=== PATIENT | female | born 1995 | race Caucasian/White ===

== ENCOUNTER 2019-05-10 10:27 | Observation (INO) ==
[2019-05-10] MEDS ORDERED: Ringers Solution, Lactated 1,000 ML IVC ONE (14:11)
[2019-05-10] MEDS ORDERED: Ringers Solution, Lactated 1,000 ML ONE (14:29)
[2019-05-10] MEDS: Acetaminophen 325 MG TABLET PO PRN ×2 (15:02→23:17)
[2019-05-10] MEDS: Meropenem 1,000 MG in 0.9 % Sodium Chloride Mini Bag 100 ML IVPB SCH ×2 (16:08→23:25)
[2019-05-10] MEDS: Ringers Solution, Lactated 1,000 ML IVC SCH ×2 (16:10→23:19)
[2019-05-10] MEDS: Ondansetron 4 MG/2 ML VIAL IVP PRN (23:40)
[2019-05-11 06:24] LABS: Basophils # 0.1 K/mcL (0.0-0.2); Basophils % 0.4 %; Eosinophils # 0.3 K/mcL (0.0-0.6); Eosinophils % 2.3 %; Hematocrit 31.4 % (35.3-44.9); Hemoglobin 10.1 g/dL (11.5-15.4); Immature Granulocytes % 0.7 % (0-4); Lymphocytes # 1.8 K/mcL (0.6-4.6); Lymphocytes % 13.3 %; Mean Corpuscular HGB Conc 32.2 g/dL (31.6-35.5); Mean Corpuscular Hemoglobin 28.5 pg (28.0-33.3); Mean Corpuscular Volume 88.5 fL (83.0-100.0); Mean Platelet Volume 11.3 fL (9.4-12.4); Monocytes # 0.8 K/mcL (0.0-1.3); Monocytes % 5.7 %; Neutrophils # 10.6 K/mcL (1.6-8.9); Platelet Count 275 K/mcL (140-400); Red Blood Count 3.55 M/mcL (3.82-4.97); Red Cell Distribution Width 12.8 % (11.5-14.5); Segmented Neutrophils % 77.6 %; White Blood Count 13.7 K/mcL (4.3-11.1)
[2019-05-11] MEDS: Acetaminophen 325 MG TABLET PO PRN (07:44)
[2019-05-11] MEDS: Meropenem 1,000 MG in 0.9 % Sodium Chloride Mini Bag 100 ML IVPB SCH (07:45)
[2019-05-11] MEDS: Ringers Solution, Lactated 1,000 ML IVC SCH (07:45)
[2019-05-11] MEDS: Ondansetron 4 MG/2 ML VIAL IVP PRN (07:53)
[2019-05-11 11:07] VITALS: BP 111/66
== END 2019-05-11 11:39 | disposition home or self-care (01) ==
LOC: 1NENUOBS
PROVIDERS: ADMIT Advanced Practice Midwife; ATTEND Advanced Practice Midwife

== ENCOUNTER 2019-10-01 00:59 | Inpatient (IN) ==
[2019-10-01] MEDS ORDERED: EPHEDrine 50 MG/ML VIAL IVP PRN (01:37)
[2019-10-01] MEDS ORDERED: Naloxone 0.4 MG/ML INJ IVP PRN (01:38)
[2019-10-01] MEDS ORDERED: Famotidine 20 MG/2 ML VIAL IVP PRN (01:38)
[2019-10-01] MEDS ORDERED: Metoclopramide 10 MG/2 ML VIAL IVP PRN (01:38)
[2019-10-01] MEDS ORDERED: *HR* FentaNYL (PF) 100 MCG/2 ML VIAL IVP PRN (01:38)
[2019-10-01] MEDS ORDERED: Epidural Premix (fent/bupiv) 110 ML EP ONE (01:43)
[2019-10-01] MEDS ORDERED: Ringers Solution, Lactated 1,000 ML IVC SCH (01:45)
[2019-10-01] MEDS ORDERED: Epidural Premix (fent/bupiv) 110 ML EP SCH (01:45)
[2019-10-01 02:23] LABS: Basophils # 0.1 K/mcL (0.0-0.2); Basophils % 0.3 %; Eosinophils # 0.2 K/mcL (0.0-0.6); Eosinophils % 0.8 %; Hematocrit 33.2 % (35.3-44.9); Hemoglobin 10.6 g/dL (11.5-15.4); Immature Granulocytes % 1.4 % (0-4); Lymphocytes # 2.1 K/mcL (0.6-4.6); Lymphocytes % 10.3 %; Mean Corpuscular HGB Conc 31.9 g/dL (31.6-35.5); Mean Corpuscular Hemoglobin 27.6 pg (28.0-33.3); Mean Corpuscular Volume 86.5 fL (83.0-100.0); Mean Platelet Volume 11.6 fL (9.4-12.4); Monocytes # 1.5 K/mcL (0.0-1.3); Monocytes % 7.2 %; Neutrophils # 16.2 K/mcL (1.6-8.9); Platelet Count 276 K/mcL (140-400); Red Blood Count 3.84 M/mcL (3.82-4.97); Red Cell Distribution Width 14.6 % (11.5-14.5); White Blood Count 20.3 K/mcL (4.3-11.1)
[2019-10-01 02:33] LABS: Amphetamine Screen,Urine Negative ng/mL (Cutoff=1000); Barbiturate Screen,Urine Negative ng/mL (Cutoff=200); Benzodiazepines Screen,Urine Negative ng/mL (Cutoff=200); Cannabinoid Screen,Urine Negative ng/mL (Cutoff = 50); Cocaine Screen,Urine Negative ng/mL (Cutoff= 300); Opiate Screen,Urine Negative ng/mL (Cutoff=300); Phencyclidine Screen,Urine Negative ng/mL (Cutoff=25)
[2019-10-01] MEDS: Meropenem 1,000 MG in 0.9 % Sodium Chloride Mini Bag 100 ML IVPB SCH ×2 (02:34→09:33)
[2019-10-01] MEDS ORDERED: miSOPROStoL 25 MCG TABLET PO SCH (03:00)
[2019-10-01] MEDS ORDERED: Oxytocin 20 units/ LR 1000 mL 20 UNIT/1,000 ML BAG IVC SCH ×2 (08:00→15:37)
[2019-10-01] MEDS ORDERED: Acetaminophen 325 MG TABLET PO PRN (15:37)
[2019-10-01] MEDS ORDERED: Lanolin 7 G OINT...G. TP PRN (15:37)
[2019-10-01] MEDS ORDERED: Measles/Mumps/Rubella Vacc 0.5 ML VIAL SQ PRN (15:37)
[2019-10-01] MEDS ORDERED: Benzocaine/Menthol 56 GM AEROSOL SPRAY TP PRN (15:37)
[2019-10-01] MEDS: Ibuprofen 600 MG TABLET PO PRN ×2 (15:53→21:28)
[2019-10-02] MEDS: Ibuprofen 600 MG TABLET PO PRN (04:38)
[2019-10-02 06:17] LABS: Basophils # 0.1 K/mcL (0.0-0.2); Basophils % 0.4 %; Eosinophils # 0.2 K/mcL (0.0-0.6); Eosinophils % 1.1 %; Hematocrit 30.7 % (35.3-44.9); Hemoglobin 9.4 g/dL (11.5-15.4); Immature Granulocytes % 1.2 % (0-4); Lymphocytes # 1.9 K/mcL (0.6-4.6); Lymphocytes % 12.4 %; Mean Corpuscular HGB Conc 30.6 g/dL (31.6-35.5); Mean Corpuscular Hemoglobin 27.3 pg (28.0-33.3); Mean Corpuscular Volume 89.2 fL (83.0-100.0); Mean Platelet Volume 11.8 fL (9.4-12.4); Monocytes # 0.9 K/mcL (0.0-1.3); Neutrophils # 12.4 K/mcL (1.6-8.9); Platelet Count 230 K/mcL (140-400); Red Blood Count 3.44 M/mcL (3.82-4.97); Red Cell Distribution Width 14.7 % (11.5-14.5); Segmented Neutrophils % 78.9 %; White Blood Count 15.7 K/mcL (4.3-11.1)
[2019-10-02 07:46] VITALS: BP 117/54
[2019-10-02] MEDS ORDERED: Prenatal Vit/FA 1 EACH TABLET PO SCH (09:00)
== END 2019-10-02 18:15 | disposition home or self-care (01) | DRG 807 ==
LOC: 1NENULAB 00:59 → 1NENUOBS 14:52
PROVIDERS: ADMIT Obstetrics & Gynecology; ATTEND Obstetrics & Gynecology

== ENCOUNTER 2021-11-12 14:19 | Observation (INO) ==
[2021-11-12] MEDS ORDERED: Naloxone 0.4 MG/ML INJ IVP PRN (18:43)
[2021-11-12 19:36] LABS: Basophils # 0.1 K/mcL (0.0-0.2); Basophils % 0.6 %; Eosinophils # 0.6 K/mcL (0.0-0.6); Eosinophils % 5.9 %; Hematocrit 37.5 % (35.3-44.9); Hemoglobin 11.9 g/dL (11.5-15.4); Immature Granulocytes % 0.4 % (0-4); Lymphocytes # 1.5 K/mcL (0.6-4.6); Lymphocytes % 15.7 %; Mean Corpuscular HGB Conc 31.7 g/dL (31.6-35.5); Mean Corpuscular Hemoglobin 28.2 pg (28.0-33.3); Mean Corpuscular Volume 88.9 fL (83.0-100.0); Mean Platelet Volume 10.7 fL (9.4-12.4); Monocytes # 0.8 K/mcL (0.0-1.3); Monocytes % 8.6 %; Neutrophils # 6.6 K/mcL (1.6-8.9); Platelet Count 288 K/mcL (140-400); Red Blood Count 4.22 M/mcL (3.82-4.97); Red Cell Distribution Width 12.4 % (11.5-14.5); Segmented Neutrophils % 68.8 %; White Blood Count 9.6 K/mcL (4.3-11.1)
[2021-11-12 19:42] LABS: INR 1.2; Prothrombin Time 13.4 Seconds (9.4-12.1)
[2021-11-12 20:25] LABS: Magnesium 2.1 mg/dL (1.6-2.6); Phosphorous 3.9 mg/dL (2.7-4.5); Troponin I 0.18 ng/mL (< 0.04)
[2021-11-12] MEDS ORDERED: *HR* Heparin 5,000 UNIT/ML VIAL IVP PRN ×2 (20:46)
[2021-11-12] MEDS ORDERED: *HR* Heparin 5,000 UNIT/ML VIAL IVP ONE (20:46)
[2021-11-12] MEDS ORDERED: Heparin 25,000UNIT/250ML 1/2NS 25,000 UNIT/250 ML IV.SOLN IVC SCH (21:00)
[2021-11-12 21:57] LABS: Hematocrit 38.2 % (35.3-44.9); Hemoglobin 12.3 g/dL (11.5-15.4); Mean Corpuscular HGB Conc 32.2 g/dL (31.6-35.5); Mean Corpuscular Hemoglobin 29.3 pg (28.0-33.3); Mean Platelet Volume 10.8 fL (9.4-12.4); Platelet Count 269 K/mcL (140-400); Red Cell Distribution Width 12.5 % (11.5-14.5); White Blood Count 9.8 K/mcL (4.3-11.1)
[2021-11-12 22:15] LABS: Heparin anti-factor XA UFH 0.09 IU/mL (0.30-0.70); INR 1.1; Prothrombin Time 12.8 Seconds (9.4-12.1)
[2021-11-12] MEDS: Morphine Sulfate 2 MG/ML SYRINGE IVP PRN (23:11)
[2021-11-12] MEDS: Ondansetron 4 MG/2 ML VIAL IVP PRN (23:18)
[2021-11-12] MEDS: Gabapentin 300 MG CAPSULE PO SCH (23:23)
[2021-11-13 01:53] LABS: BUN/Creatinine Ratio 19 (6-26); Blood Urea Nitrogen 12 mg/dL (6-20); Calcium 8.9 mg/dL (8.6-10.3); Carbon Dioxide 23 mEq/L (23-29); Chloride 106 mEq/L (98-107); Glucose 81 mg/dL (70-105); Osmolality,Calculated 287 (280-300); Potassium 3.7 mEq/L (3.5-5.1); Sodium 139 mEq/L (136-145)
[2021-11-13 02:01] LABS: Troponin I 0.31 ng/mL (< 0.04)
[2021-11-13] MEDS: Morphine Sulfate 2 MG/ML SYRINGE IVP PRN ×2 (04:42→10:16)
[2021-11-13 05:56] LABS: Adenovirus Not Detected (Not Detect); Bordetella Pertussis Not Detected (Not Detect); Chlamydophila pneumoniae Not Detected (Not Detect); Coronavirus 229E Not Detected (Not Detect); Coronavirus HKU1 Not Detected (Not Detect); Coronavirus NL63 Not Detected (Not Detect); Coronavirus OC43 Not Detected (Not Detect); Human Metapneumovirus Not Detected (Not Detect); Human Rhinovirus/Enterovirus Not Detected (Not Detect); Influenza A Subtype 2009 H1 Not Detected (Not Detect); Influenza B Not Detected (Not Detect); Mycoplasma pneumoniae Not Detected (Not Detect); Parainfluenza Virus 1 Not Detected (Not Detect); Parainfluenza Virus 2 Not Detected (Not Detect); Parainfluenza Virus 3 Not Detected (Not Detect); Parainfluenza Virus 4 Not Detected (Not Detect); Respiratory Syncytial Virus Not Detected (Not Detect); SARS-CoV-2 Not Detected (Not Detect)
[2021-11-13] MEDS: Ondansetron 4 MG/2 ML VIAL IVP PRN (07:01)
[2021-11-13] MEDS ORDERED: lamoTRIgine 100 MG TABLET PO SCH (09:00)
[2021-11-13] MEDS: Gabapentin 300 MG CAPSULE PO SCH (10:10)
[2021-11-13 10:12] LABS: Chol/HDL Ratio 4.6 (0-4.9)
[2021-11-13 10:41] LABS: Estimated Average Glucose 108 mg/dl; Hemoglobin A1C 5.4 %
[2021-11-13 10:53] VITALS: TEMP 98.4
[2021-11-13] MEDS ORDERED: 0.9 % Sodium Chloride 1,000 ML IVC SCH (11:30)
[2021-11-13] MEDS ORDERED: Aspirin 81 MG TAB.CHEW PO SCH (11:30)
[2021-11-13] MEDS ORDERED: Pantoprazole 40 MG VIAL IVP SCH (11:45)
[2021-11-13] MEDS ORDERED: *HR* Midazolam HCl 2 MG/2 ML VIAL ONE (12:43)
[2021-11-13] MEDS ORDERED: *HR* FentaNYL (PF) 100 MCG/2 ML VIAL ONE (12:43)
[2021-11-13] MEDS ORDERED: *HR* Heparin 10,000 UNIT/10 ML VIAL ONE (12:43)
[2021-11-13] MEDS ORDERED: Heparin 1,000 UNITS/500 mL 500 ML ONE (12:43)
[2021-11-13] MEDS ORDERED: Iopamidol - 370 200 ML INFUS..BTL ONE (12:43)
[2021-11-13] MEDS ORDERED: 0.9 % Sodium Chloride 2,000 ML ONE (12:43)
[2021-11-13] MEDS ORDERED: Nitroglycerin 1,000 MCG/5 ML VIAL IV ONE (12:43)
[2021-11-13 13:00] LABS: Amphetamine Screen,Urine Negative ng/mL (Cutoff=1000); Barbiturate Screen,Urine Negative ng/mL (Cutoff=200); Benzodiazepines Screen,Urine Positive ng/mL (Cutoff=200); Cannabinoid Screen,Urine Negative ng/mL (Cutoff = 50); Cocaine Screen,Urine Negative ng/mL (Cutoff= 300); Opiate Screen,Urine Positive ng/mL (Cutoff=300); Phencyclidine Screen,Urine Negative ng/mL (Cutoff=25)
[2021-11-13] MEDS ORDERED: Isosorbide MONOnitrate (24 HR) 30 MG TAB.ER.24H PO SCH (13:45)
[2021-11-13] MEDS ORDERED: Acetaminophen 325 MG TABLET PO ONE ×2 (17:05→17:11)
[2021-11-13 17:13] VITALS: BP 102/64; PULSE 75; O2SAT 96
== END 2021-11-13 18:24 | disposition home or self-care (01) ==
LOC: 3BNU → SUATTDRO 17:26
PROVIDERS: ADMIT Student in an Organized Health Care Education/Training Program; ATTEND Internal Medicine